=== PATIENT | female | born 1975 | race African-American/Black ===

== ENCOUNTER 2018-07-31 08:31 | Emergency (ER) | payer MEDICAID ==
[2018-07-31 08:37] VITALS: BP 111/66
[2018-07-31] MEDS ORDERED: ONDANSETRON 4 MG TAB.RAPDIS PO ONE (10:18)
[2018-07-31] MEDS ORDERED: IPRATROPIUM/ALBUTEROL 0.5-2.5 MG/3 ML AMPUL NEB ONE (10:18)
[2018-07-31] MEDS ORDERED: ACETAMINOPHEN 325 MG TABLET PO ONE (10:18)
--- NOTE | 2018-07-31 11:00 | RADIOLOGY REPORT (SQ) ---
EXAM DESCRIPTION: CHEST 2 VIEWS COMPLETED DATE/TIME: 07/31/2018 10:37 am REASON FOR STUDY: Cough COMPARISON: None. EXAM PARAMETERS: NUMBER OF VIEWS: two views TECHNIQUE: Digital Frontal and Lateral radiographic views of the chest acquired. RADIATION DOSE: NA LIMITATIONS: none FINDINGS: LUNGS AND PLEURA: No opacities, masses or pneumothorax. No pleural effusion. MEDIASTINUM AND HILAR STRUCTURES: No masses or contour abnormalities. HEART AND VASCULAR STRUCTURES: Heart normal size. No evidence for failure. BONES: No acute findings. HARDWARE: None in the chest. OTHER: No other significant finding. IMPRESSION: NO ACUTE RADIOGRAPHIC FINDING IN THE CHEST. TECHNICAL DOCUMENTATION: JOB ID: [id number] [employer]- All Rights Reserved Reading location - IP/workstation name: [email or web address]
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
[2018-07-31] MEDS ORDERED: ALBUTEROL SULFATE HFA (90 MCG/PUFF) 8 GM MDI (1 MDI/ER DISP) IH PRN (11:30)
== END 2018-07-31 11:43 | disposition home or self-care (01) ==
LOC: ER 08:31
DX: J06.9 Acute upper respiratory infection, unspecified (principal); R11.10 Vomiting, unspecified; Z87.891 Personal history of nicotine dependence
CPT/HCPCS: 94640; 99283; 71046; J3490; S0119; J7620

== ENCOUNTER 2018-11-18 02:47 | Emergency (ER) | payer MEDICAID ==
[2018-11-18] MEDS ORDERED: IBUPROFEN 800 MG TABLET PO ONE (03:07)
[2018-11-18] MEDS ORDERED: DEXAMETHASONE SOD PHOS INJ 10 MG/1 ML VIAL IM ONE (03:07)
--- NOTE | 2018-11-18 03:10 | ER Document Report ---
HPI - HPI Patient complains to provider of: sore throat Time Seen by Provider: 11/18/18 03:00 Pain Level: 5 Context: Patient is a 43-year-old female that comes to the emergency department for chief complaint of sore throat for the past week. She has had a tonsillectomy. She states that she has swollen lymph nodes in her neck. She denies fever. She denies congestion or cough. She denies any obvious sick contacts. She denies difficulty swallowing or breathing. She denies any daily medications or medical history otherwise. She denies smoking, alcohol, or recreational drugs. She denies any medication allergies. LMP within the past month. - REPRODUCTIVE Reproductive: DENIES: : Past Medical History - General Information source: Patient - Social History Smoking Status: Never Smoker Frequency of alcohol use: None Drug Abuse: None Lives with: Family Family History: Reviewed & Not Pertinent Pulmonary Medical History: Reports: Hx Asthma Neurological Medical History: Reports: Hx Migraine Renal/ Medical History: Denies: Hx Peritoneal Dialysis Past Surgical History: Reports: Hx Tonsillectomy - Immunizations Immunizations up to date: Yes Hx Diphtheria, Pertussis, Tetanus Vaccination: Yes Vertical Provider Document - CONSTITUTIONAL General Appearance: WD/WN, No Apparent Distress - INFECTION CONTROL TRAVEL OUTSIDE OF THE [place] IN LAST 30 DAYS: No - HEENT HEENT: Atraumatic, Normocephalic. negative: Normal ENT Exam - Posterior erythema of the pharynx, no tonsils noted, unremarkable uvula, clear airway. Unremarkable ears, unremarkable sinus. Unremarkable nasal passages. - NECK Neck: Other - Bilateral anterior cervical adenopathy without erythema, abnormal heat, or signs of abscess. - RESPIRATORY Respiratory: Breath Sounds Normal, No Respiratory Distress - CARDIOVASCULAR Cardiovascular: Regular Rate, Regular Rhythm - GI/ABDOMEN Gastrointestinal: Abdomen Soft, Abdomen Non-Tender - MUSCULOSKELETAL/EXTREMETIES Musculoskeletal/Extremeties: MAEW, FROM, Non-Tender - NEURO Level of Consciousness: Awake, Alert, Appropriate - DERM Integumentary: Warm, Dry, No Rash Course - Re-evaluation Re-evalutation: Examination consistent with pharyngitis and secondary anterior cervical adenopathy. No evidence of abscess. No evidence of cellulitis. Strep is negative. Probably viral. Discussed with patient. Culture pending. Treated with dexamethasone, anti-inflammatory. Discussed follow-up and return precautions. Patient states understanding and agreement. - Vital Signs Vital signs: Temp Pulse Resp BP Pulse Ox 98.6 F 64 18 119/61 99 11/18/18 02:50 11/18/18 02:50 11/18/18 02:50 11/18/18 02:50 11/18/18 02:50 Discharge - Discharge Clinical Impression: Lymphadenopathy Pharyngitis Qualifiers: Pharyngitis/tonsillitis etiology: unspecified etiology Qualified Code(s): J02.9 - Acute pharyngitis, unspecified Condition: Stable Disposition: HOME, SELF-CARE Additional Instructions: Your strep test is negative. This is most likely viral. It should resolve with time. You have been treated for swelling of the lymph nodes and the throat. Take the Motrin as prescribed, drink plenty of fluids, rest. Follow-up with primary care. Return if you worsen including difficulty swallowing, fever/chills, or any other concerning or worsening symptoms. Prescriptions: Ibuprofen [Motrin 600 mg Tablet] 600 mg PO Q6HP PRN #24 tablet PRN Reason:
[2018-11-18 03:46] VITALS: BP 100/83
== END 2018-11-18 03:46 | disposition home or self-care (01) ==
LOC: ER 02:47
DX: J02.9 Acute pharyngitis, unspecified (principal); R59.0 Localized enlarged lymph nodes; J45.909 Unspecified asthma, uncomplicated; Z90.89 Acquired absence of other organs
CPT/HCPCS: 99283; 96372; 87070; 87880; J3490; J1100

== ENCOUNTER 2018-11-20 00:37 | Emergency (ER) | payer MEDICAID ==
[2018-11-20 00:44] VITALS: BP 123/70
--- NOTE | 2018-11-20 00:55 | ER Document Report ---
ED General - General Chief Complaint: Sore Throat Stated Complaint: THROAT PAIN Time Seen by Provider: 11/20/18 00:55 Notes: Patient is a 43-year-old female that presents to the emergency department for chief complaint of sore throat. Patient states she is been dealing with symptoms of sore throat for approximately 2 weeks is progressively getting worse of the last several days. She states she is a history of tonsillectomy. She currently rates the pain as a 7 out of 10, painful swallowing, she states she is able to keep her secretions then. Denies fevers, chills. She has had tenderness on her neck as well. Denies having any dental pain. She was seen in the department 2 days ago, and had her throat swab for strep, and was negative on the rapid strep, she states that her pain is not much improved so she decided come back to the emergency department. Denies any other complaints at this time, denies nausea, vomiting, shortness of breath, cough, difficulty breathing. Past Medical History: Denies chronic medical conditions Past Surgical History: Tonsillectomy Social History: Denies tobacco, alcohol or drug use. Family History: Reviewed and noncontributory for presenting illness Allergies: Reviewed, see documented allergy list. REVIEW OF SYSTEMS: Other than noted above, the 12 point review of systems was reviewed with the patient and were negative, all pertinent findings are included in the HPI. PHYSICAL EXAMINATION: Vital signs reviewed, nursing noted reviewed. GENERAL: Well-appearing, well-nourished and in no acute distress. HEAD: Atraumatic, normocephalic. EYES: Eyes appear normal, extraocular movements intact, sclera anicteric, conjunctiva are normal. ENT: nares patent, oropharynx clear without exudates, mild posterior oropharynx erythema. Moist mucous membranes. NECK: Normal range of motion, bilateral anterior tender cervical lymphadenopathy. LUNGS: Breath sounds clear to auscultation bilaterally and equal. No wheezes rales or rhonchi. HEART: Regular rate and rhythm without murmurs ABDOMEN: Soft, nontender, normoactive bowel sounds. No rebound, guarding, or rigidity. No masses appreciated. EXTREMITIES: Nontender, good range of motion, no pitting or edema. NEUROLOGICAL: No focal neurological deficits. Moves all extremities spontaneously Motor and sensory grossly intact on exam. PSYCH: Normal mood, normal affect. SKIN: Warm, Dry, normal turgor, no rashes or lesions noted on exposed skin TRAVEL OUTSIDE OF THE [place] IN LAST 30 DAYS: No - Related Data Allergies/Adverse Reactions: aspirin Allergy (Verified 07/31/18 08:32) Past Medical History - Social History Smoking Status: Never Smoker Family History: Reviewed & Not Pertinent Pulmonary Medical History: Reports: Hx Asthma Neurological Medical History: Reports: Hx Migraine Renal/ Medical History: Denies: Hx Peritoneal Dialysis Past Surgical History: Reports: Hx Tonsillectomy - Immunizations Immunizations up to date: Yes Hx Diphtheria, Pertussis, Tetanus Vaccination: Yes Physical Exam - Vital signs Vitals: Temp Pulse Resp BP Pulse Ox 98.3 F 60 16 123/70 97 11/20/18 00:43 11/20/18 00:43 11/20/18 00:43 11/20/18 00:43 11/20/18 00:43 Course - Re-evaluation Re-evalutation: Patient seen and examined vital signs reviewed. Patient was evaluated and treated as appropriate for the patient's presenting symptoms and complaint, with consideration of any critical or life threatening conditions that may be associated with their obtained history and exam as noted above. Patient was treated with lidocaine nebulizer, and IM Decadron 10 mg, prior chart reviewed, negative throat culture for strep, most likely viral pharyngitis, he did obtain x-ray of the neck, negative for evidence of retropharyngeal abscess, patient seems improved on reevaluation, will discharge her home with some Tessalon Perles to help with her sore throat as well, patient states she did get improvement with prior Decadron dosing, therefore this is being repeated. Evaluation was most consistent with acute pharyngitis Plan of care was discussed with the patient at this point, after careful consideration I feel that that patient can be discharged from the emergency department, the patient was educated treatments and reasons to return to the emergency department based on their presumed diagnosis as noted above, they were advised to followup with a primary care physician in 2-3 days. Patient was agreeable to plan of care. *Note is created using voice recognition software and may contain spelling, syntax or grammatical errors. Soft Tissue Neck X-Ray 11/20/18 01:10 IMPRESSION: No acute abnormality is identified. - Vital Signs Vital signs: Temp Pulse Resp BP Pulse Ox 98.3 F 60 16 123/70 97 11/20/18 00:43 11/20/18 00:43 11/20/18 00:43 11/20/18 00:43 11/20/18 00:43 Discharge - Discharge Clinical Impression: Acute pharyngitis Qualifiers: Pharyngitis/tonsillitis etiology: unspecified etiology Qualified Code(s): J02.9 - Acute pharyngitis, unspecified Condition: Stable Disposition: HOME, SELF-CARE Instructions: Sore Throat ([facility]) Prescriptions: Benzonatate [Tessalon Perle 100 mg Capsule] 100 mg PO Q8HP PRN #30 cap PRN Reason: sore throat/cough Referrals: AREN TOVAR MD [[facility]AFF] - Follow up in 3-5 days
[2018-11-20] MEDS ORDERED: LIDOCAINE 2% INJ-PF (20 MG/ML) 10 ML AMPUL NEB ONE (01:12)
--- NOTE | 2018-11-20 01:53 | RADIOLOGY REPORT (SQ) ---
EXAM DESCRIPTION: CLINICAL HISTORY: 43 years Female sore throat COMPARISON: None. FINDINGS: No foreign object is noted. Epiglottis is within normal limits. No narrowing of the airway is noted. Degenerative changes in the cervical spine. IMPRESSION: No acute abnormality is identified.
[2018-11-20] MEDS ORDERED: DEXAMETHASONE SOD PHOS INJ 10 MG/1 ML VIAL IM ONE (01:57)
[2018-11-20] MEDS ORDERED: DEXAMETHASONE SOD PHOS INJ 10 MG/1 ML VIAL IV ONE (02:29)
== END 2018-11-20 02:40 | disposition home or self-care (01) ==
LOC: ER 00:37
DX: J02.9 Acute pharyngitis, unspecified (principal); R59.0 Localized enlarged lymph nodes; Z90.89 Acquired absence of other organs; J45.909 Unspecified asthma, uncomplicated; Z88.6 Allergy status to analgesic agent
CPT/HCPCS: 94640; 99283; 96374; 70360; J3490; J1100

== ENCOUNTER 2019-05-29 17:18 | Emergency (ER) | payer OTHER, MEDICAID ==
[2019-05-29 17:27] VITALS: BP 128/83
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
== END 2019-05-29 18:02 | disposition home or self-care (01) ==
LOC: ER 17:18
DX: M54.2 Cervicalgia (principal); V87.7XXA Person injured in collision between other specified motor vehicles (traffic), initial encounter; J45.909 Unspecified asthma, uncomplicated
CPT/HCPCS: 99283; L0120